=== PATIENT | female | born 1960 | race Caucasian/White ===

== ENCOUNTER 2016-08-27 05:08 | Emergency (ER) | payer MEDICAID ==
[2016-08-27] MEDS ORDERED: Sodium Chloride 0.9% 10 ML Syringe FLUSH PRN (05:22)
[2016-08-27] MEDS ORDERED: Bupivacaine 0.5% 30 ML SDV INJECT PRN (05:22)
[2016-08-27] MEDS ORDERED: Sodium Chloride 0.9% 1,000 ML IV SCH (05:30)
[2016-08-27] MEDS ORDERED: Ketorolac 30 MG/ML SDV IVPUSH ONE (05:48)
[2016-08-27] MEDS ORDERED: fentaNYL 100 MCG/2 ML SDV IVPUSH ONE (05:48)
--- NOTE | 2016-08-27 06:13 | EDM.PDOC ---
ED UPPER BACK/NECK PAIN/INJURY - General Chief Complaint: Neck Problem Stated Complaint: pain Time Seen by Provider: 08/27/16 05:21 Source of Information: Reports: Patient, EMS, EMS notes reviewed, RN, RN notes reviewed History Limitations: Reports: No limitations - History of Present Illness INITIAL COMMENTS - FREE TEXT/NARRATIVE: Patient presents to the ED at [facility] via EMS complaining of severe neck pain. Patient was seen at the [facility] on Thursday, August 25, 2016 when her symptoms first started. Patient states she was told she had a sinus infection, placed on Augmentin and Flexeril, and sent home. Patient states she has been taking her medications as directed, which minimal relief. Patient has had a low grade temp over the past couple days. Patient states the neck pain only radiated to the left lower occipital area. No headaches. No injury or trauma. Patient states she is unable to move her head from side to side. Patient denies any visual field disturbances. Symptom Onset Date: 08/25/16 Timing/Duration: Reports: Getting worse Location: Reports: paraspinal Quality: Reports: Stabbing, Throbbing Severity: severe - Related Data Allergies/ADRs: Allergies Allergy/AdvReac Type Severity Reaction Status Date / Time codeine Allergy Rash Verified 04/02/15 13:09 Home Meds: Home Meds Insulin Glarg,Human.Rec.Analog [LantUS] 20 unit SUBCUT BEDTIME 07/17/14 [History ] Insulin Regular, Human [NovoLIN R] 5 unit SQ TID 07/17/14 [History] Lisinopril [Prinivil] 1 tab PO DAILY 07/17/14 [History] Meclizine [Antivert] 25 mg PO TID PRN #15 tablet 04/03/15 [Rx] Social & Family History - Tobacco Use Smoking Status *Q: Never Smoker Second Hand Smoke Exposure: No - Caffeine Use Caffeine Use: Reports: None - Alcohol Use Days Per Week of Alcohol Use: 1 Number of Drinks Per Day: 10 Total Drinks Per Week: 10 - Recreational Drug Use Recreational Drug Use: No ED ROS GENERAL - Review of Systems Review Of Systems: See Below Constitutional: Reports: fever. Denies: chills, weakness HEENT: Denies: Sinus problem, Vertigo, Vision change Respiratory: Denies: shortness of breath, cough Cardiovascular: Denies: Chest pain, Palpitations GI/Abdominal: Reports: Nausea. Denies: Abdominal pain, Diarrhea, Vomiting Musculoskeletal: Reports: neck pain, muscle pain, muscle stiffness Neurological: Reports: no symptoms. Denies: dizziness, headache ED EXAM, UPPER BACK/NECK PAIN - Physical Exam Exam: See Below Exam Limited By: No limitations General Appearance: alert, mild distress Eye Exam: bilateral eye: EOMI, normal inspection, PERRL Ears Exam: normal external exam, normal canal, hearing grossly normal, normal TMs Nose Exam: clear rhinorrhea Head Exam: atraumatic, normocephalic Neck Exam: limited range of motion, muscle spasm, paraspinous muscle tender, tenderness Cardiovascular/Respiratory: regular rate, rhythm, normal peripheral pulses GI/Abdominal: normal bowel sounds, soft, no distention Neurologic: alert, oriented x 3 Skin Exam: Normal color, Warm/dry Course - Vital Signs Last Recorded V/S: Last Vital Signs Temp 36.4 C 08/27/16 06:33 Pulse 84 08/27/16 06:33 Resp 20 08/27/16 05:26 BP 140/69 08/27/16 06:33 Pulse Ox 96 08/27/16 05:26 - Orders/Labs/Meds Orders: Active Orders 24 hr Category Date Time Status BASIC METABOLIC PANEL,BMP [CHEM] Stat Lab 08/27/16 05:23 Ordered Bupivacaine 0.5% [Marcaine 0.5%] Med 08/27/16 05:22 Active 30 ml INJECT ASDIRECTED PRN Sodium Chloride 0.9% [Normal Saline] 1,000 ml Med 08/27/16 05:30 Active IV ASDIRECTED Sodium Chloride 0.9% [Saline Flush] Med 08/27/16 05:22 Active 10 ml FLUSH ASDIRECTED PRN Peripheral IV Insertion Adult [OM.PC] Routine Oth 08/27/16 05:22 Ordered Medication Orders Bupivacaine HCl (Marcaine 0.5%) 30 ml INJECT ASDIRECTED PRN PRN Reason: Other Last Admin: 08/27/16 05:37 Dose: 30 ml Sodium Chloride (Normal Saline) 1,000 mls @ 999 mls/hr IV ASDIRECTED SUKHDEEP Last Admin: 08/27/16 05:47 Dose: 999 mls/hr Sodium Chloride (Saline Flush) 10 ml FLUSH ASDIRECTED PRN PRN Reason: Keep Vein Open Last Admin: 08/27/16 05:47 Dose: 10 ml Labs: Laboratory Tests 08/27/16 08/27/16 Range/Units 05:23 05:32 WBC 9.3 (4.0-10.0) x10^3/uL RBC 3.81 L (4.00-5.50) x10^6/uL Hgb 10.9 L (12.0-16.0) g/dL Hct 33.0 (33.0-47.0) % MCV 86.6 (78.0-93.0) fL MCH 28.6 (26.0-32.0) pg MCHC 33.0 (32.0-36.0) g/dL RDW Coeff of Shimon 13.5 (10.0-15.0) % Plt Count 261 (130-400) x10^3/uL Neut % (Auto) 55.0 (50.0-80.0) % Lymph % (Auto) 30.9 (25.0-50.0) % [place] % (Auto) 7.8 (2.0-11.0) % Eos % (Auto) 6.1 H (0.0-4.0) % Baso % (Auto) 0.2 (0.2-1.2) % Urine Color Yellow (YELLOW) Urine Appearance Clear (CLEAR) Urine pH 7.0 (5.0-8.0) Ur Specific [place] 1.010 Urine Protein 30 H (NEGATIVE) mg/dL Urine Glucose (UA) Negative (NEGATIVE) mg/dL Urine Ketones Negative (NEGATIVE) mg/dL Urine Occult Blood Trace-lysed H (NEGATIVE) Urine Nitrite Negative (NEGATIVE) Urine Bilirubin Negative (NEGATIVE) Urine Urobilinogen 0.2 (0.2) EU/dL Ur Leukocyte Esterase Negative (NEGATIVE) Urine RBC 0-5 (NOT SEEN) /HPF Urine WBC 0-5 (NOT SEEN) /HPF Ur Squamous Epith Cells Few H (NEGATIVE) /HPF Urine Bacteria Few H (NEGATIVE) /HPF Urine Mucus Few H (NEGATIVE) /LPF Meds: Medications Generic Name Dose Route Start Last Admin Trade Name Freq PRN Reason Stop Dose Admin Bupivacaine HCl 30 ml 08/27/16 05:22 08/27/16 05:37 Marcaine 0.5% INJECT 30 ml ASDIRECTED PRN Administration Other Sodium Chloride 1,000 mls @ 999 mls/hr 08/27/16 05:30 08/27/16 05:47 Normal Saline IV 999 mls/hr ASDIRECTED SUKHDEEP Administration Sodium Chloride 10 ml 08/27/16 05:22 08/27/16 05:47 Saline Flush FLUSH 10 ml ASDIRECTED PRN Administration Keep Vein Open Discontinued Medications Generic Name Dose Route Start Last Admin Trade Name Freq PRN Reason Stop Dose Admin Fentanyl 50 mcg 08/27/16 05:48 08/27/16 06:00 Sublimaze IVPUSH 08/27/16 05:49 50 mcg ONETIME ONE Administration Ketorolac Tromethamine 30 mg 08/27/16 05:48 08/27/16 06:05 Toradol IVPUSH 08/27/16 05:49 30 mg ONETIME ONE Administration Lidocaine HCl 5 ml 08/27/16 05:21 08/27/16 05:37 Xylocaine-Mpf 1% INJECT 08/27/16 05:22 5 ml ONETIME ONE Administration Orphenadrine Citrate 60 mg 08/27/16 05:44 08/27/16 05:50 Norflex IM 08/27/16 05:45 60 mg Q12H ONE Administration Departure - Departure Time of Disposition: 06:54 Disposition: Home, Self-Care 01 Condition: good Clinical Impression: Neck pain, bilateral Instructions: Cervical Sprain, [id number] Referrals: Freda Ernst PA-C [Ordering Only Provider] - Forms: ED Department Discharge Additional Instructions: 1. Stay well hydrated and rest 2. Alternate heat/ice to your neck several times a day 3. Recommend physical therapy 4. Take pain medications as directed 5. Continue with antibiotics as ordered 6. See your primary symptoms warrant - Problem List Review Problem List Initiated/Reviewed/Updated: Yes - My Orders Last 24 Hours: My Active Orders 08/27/16 05:22 Bupivacaine 0.5% [Marcaine 0.5%] 30 ml INJECT ASDIRECTED PRN Sodium Chloride 0.9% [Saline Flush] 10 ml FLUSH ASDIRECTED PRN Peripheral IV Insertion Adult [OM.PC] Routine 08/27/16 05:23 BASIC METABOLIC PANEL,BMP [CHEM] Stat 08/27/16 05:30 Sodium Chloride 0.9% [Normal Saline] 1,000 ml IV ASDIRECTED - Assessment/Plan Last 24 Hours: My Active Orders 08/27/16 05:22 Bupivacaine 0.5% [Marcaine 0.5%] 30 ml INJECT ASDIRECTED PRN Sodium Chloride 0.9% [Saline Flush] 10 ml FLUSH ASDIRECTED PRN Peripheral IV Insertion Adult [OM.PC] Routine 08/27/16 05:23 BASIC METABOLIC PANEL,BMP [CHEM] Stat 08/27/16 05:30 Sodium Chloride 0.9% [Normal Saline] 1,000 ml IV ASDIRECTED - Free Text/Narrative Note: Trigger point injection: 2.5cc Lidocaine 1% w/ 2.5cc 05% Marcaine injected into the left trapezius muscle group. Same dose was repeated into the right trapezius muscle group. Patient tolerated procedure well. No complications.
[2016-08-27 06:39] LABS: BASOPHILS PERCENT AUTO 0.2 % (0.2-1.2); EOSINOPHILS PERCENT AUTO 6.1 % (0.0-4.0); HEMOGLOBIN 10.9 g/dL (12.0-16.0); LYMPHOCYTES PERCENT AUTO 30.9 % (25.0-50.0); MEAN CORPUSCULAR HEMOGLOBIN 28.6 pg (26.0-32.0); MEAN CORPUSCULAR VOLUME 86.6 fL (78.0-93.0); MONOCYTES PERCENT AUTO 7.8 % (2.0-11.0); RDW CV 13.5 % (10.0-15.0); RED BLOOD CELL COUNT 3.81 x10^6/uL (4.00-5.50)
[2016-08-27 06:40] LABS: APPEARANCE,URINE CLEAR (CLEAR); BILIRUBIN,URINE NEGATIVE (NEGATIVE); GLUCOSE,URINE NEGATIVE (NEGATIVE); KETONES,URINE NEGATIVE (NEGATIVE); LEUKOCYTE ESTERASE,URINE NEGATIVE (NEGATIVE); NITRITE,URINE NEGATIVE (NEGATIVE); OCCULT BLOOD,URINE TRACE-LYSED (NEGATIVE); PROTEIN,URINE 30 mg/dL (NEGATIVE); UROBILINOGEN,URINE 0.2 EU/dL (0.2)
[2016-08-27 06:43] LABS: BACTERIA,URINE FEW /HPF (NEGATIVE); MUCUS,URINE FEW /LPF (NEGATIVE); RBC,URINE 0-5 /HPF (NOT SEEN); WBC,URINE 0-5 /HPF (NOT SEEN)
[2016-08-27 06:54] LABS: CALCIUM 7.9 mg/dL (8.5-10.1); CHLORIDE,CL 108 mmol/L (98-107); CREATININE 0.8 mg/dL (0.55-1.02); ESTIMATED GFR > 60; GLUCOSE RANDOM 163 mg/dL (74-106)
[2016-08-27] MEDS ORDERED: Take Home: Acetaminophen/HYDROcodone 325-5 MG, 5 Tab Pack PO ONE (06:57)
[2016-08-27 06:59] VITALS: BP 146/72
== END 2016-08-27 07:20 | disposition home or self-care (01) ==
LOC: VM.ED 05:08
DX: M54.2 Cervicalgia (principal); Z79.4 Long term (current) use of insulin; Z79.899 Other long term (current) drug therapy; Z88.5 Allergy status to narcotic agent
CPT/HCPCS: 20552; 36415; 80048; 81001; 85025; 96361; 96372; 96374; 96375; 99283; A9270; J1885; J2360; J3010; J7030; J7050